=== PATIENT | female | born 1995 | race Caucasian/White ===

== ENCOUNTER 2024-06-03 01:04 | Emergency (ER) | payer BC ==
[~2024-06-03] VITALS: Ht 160 cm; Wt 70.1 kg
[2024-06-03 01:28] VITALS: TEMP 98.3; O2SAT 99
[2024-06-03] MEDS ORDERED: ACET-2708 MT (02:16)
[2024-06-03 02:50] VITALS: BP 103/74; PULSE 91; RESP 18; O2SAT 97
== END 2024-06-03 02:51 | disposition home or self-care (01) ==
LOC: ER 02:06
DX: S00.12XA Contusion of left eyelid and periocular area, initial encounter (principal); W18.39XA Other fall on same level, initial encounter; Y93.89 Activity, other specified; Y92.89 Other specified places as the place of occurrence of the external cause; Y99.8 Other external cause status
CPT/HCPCS: 99282